=== PATIENT | female | born 1950 | race Caucasian/White ===

== ENCOUNTER 2017-12-23 09:08 | Day surgery (SDC) | payer MEDICARE, OTHER ==
[~2017-12-23] VITALS: Ht 165.1 cm; Wt 71.3 kg
[2017-12-23] MEDS ORDERED: MSM500 MG (09:59)
[2017-12-23] MEDS ORDERED: CHOL10002 (09:59)
[2017-12-23] MEDS ORDERED: Magnesium30 MG (10:00)
[2017-12-23] MEDS ORDERED: NAPR220 (10:00)
== END 2017-12-23 11:26 | disposition home or self-care (01) ==
LOC: ORSCSDS 09:08
PROVIDERS: Internal Medicine Gastroenterology
PROC: 0DJD8ZZ Inspection of Lower Intestinal Tract, Via Natural or Artificial Opening Endoscopic (ICD-10-PCS; principal; 2017-12-23 10:30)
DX: Z12.11 Encounter for screening for malignant neoplasm of colon (principal); K57.30 Diverticulosis of large intestine without perforation or abscess without bleeding; Z86.010 Personal history of colon polyps; Z83.71 Family history of colonic polyps
CPT/HCPCS: J7120

== ENCOUNTER 2021-01-26 09:03 | Emergency (ER) | payer OTHER ==
[~2021-01-26] VITALS: Ht 154.9 cm; Wt 64.4 kg
[~2021-01-26 09:03] MED LIST: CHOL10002; MSM500 MG; Magnesium30 MG; NAPR220
[2021-01-26 10:25] LABS: BASOPHILS ABSOLUTE AUTO 0.04 K/mm3 (0.00-0.23); BASOPHILS PERCENT AUTO 0 % (0-2); EOSINOPHILS PERCENT AUTO 0 % (0-6); Hematocrit 39.8 % (33.0-51.0); IMMATURE GRAN ABSOLUTE AUTO 0.06 K/mm3 (0.00-0.10); IMMATURE GRAN PERCENT AUTO 0 % (0-1); LYMPHOCYTES ABSOLUTE AUTO 0.78 K/mm3 (0.84-5.20); LYMPHOCYTES PERCENT AUTO 5 % (21-46); MONOCYTES PERCENT AUTO 7 % (4-13); Mean Corpuscular HGB 30.2 pg (26.0-34.0); Mean Corpuscular HGB Conc 32.7 g/dL (31.5-36.5); Mean Corpuscular Volume 93 fL (80-100); Mean Platelet Volume 9.7 fL (9.1-12.4); NEUTROPHILS ABSOLUTE AUTO 12.65 K/mm3 (1.96-9.15); NEUTROPHILS PERCENT AUTO 87 % (41-73); Platelet Count 199 K/mm3 (150-400); RDW Coefficient Variation 13.3 % (11.7-14.2); RDW Standard Deviation 45.2 fL (35.1-46.3); White Blood Cell Count 14.53 K/mm3 (4.00-11.30)
[2021-01-26 10:57] LABS: Albumin, Blood 3.6 g/dL (3.4-5.0); Albumin/Globulin Ratio 0.9 (0.8-1.8); Bilirubin, Total 1.1 mg/dL (0.1-1.0); Bun/Creatinine Ratio 13.5 (12.0-20.0); Calcium, Blood 8.8 mg/dL (8.5-10.1); Creatinine, Blood 1.04 mg/dL (0.40-1.00); Globulin, Blood 3.9 g/dL (2.2-4.0); Potassium, Blood 3.8 mmol/L (3.5-5.5); Total Protein, Blood 7.5 g/dL (6.4-8.2)
[2021-01-26] MEDS ORDERED: AMOCLA875 PO (12:23)
[2021-01-26] MEDS ORDERED: ONDA4ODT MM (12:23)
== END 2021-01-26 13:11 | disposition home or self-care (01) ==
LOC: ER 09:03
PROVIDERS: Emergency Medicine
DX: K57.32 Diverticulitis of large intestine without perforation or abscess without bleeding (principal); Z88.5 Allergy status to narcotic agent; Z88.8 Allergy status to other drugs, medicaments and biological substances; Z79.899 Other long term (current) drug therapy
CPT/HCPCS: 36415; 74177; 80053; 83690; 84484; 85025; 93005; 93010; 96365-59; 99284-25; J0295; J7120; Q9967

== ENCOUNTER 2022-02-01 11:57 | Day surgery (SDC) | payer OTHER ==
[~2022-02-01] VITALS: Ht 162.6 cm; Wt 65.1 kg
[~2022-02-01 11:57] MED LIST changes: +AMOCLA875 PO; +ONDA4ODT MM
[2022-02-01] MEDS ORDERED: ZINC15 (13:11)
[2022-02-01] MEDS ORDERED: GARLIC200 MG (13:11)
[2022-02-01] MEDS ORDERED: KRILL OIL500 MG (13:11)
== END 2022-02-01 15:04 | disposition home or self-care (01) ==
LOC: ORSCSDS 11:57
PROVIDERS: Ophthalmology
PROC: 08RJ3JZ Replacement of Right Lens with Synthetic Substitute, Percutaneous Approach (ICD-10-PCS; principal; 2022-02-01 13:00)
DX: H25.13 Age-related nuclear cataract, bilateral (principal); H35.30 Unspecified macular degeneration; H50.9 Unspecified strabismus
CPT/HCPCS: J2001; J2250; J3010; J3301; J7040; V2632

== ENCOUNTER 2022-03-01 12:02 | Day surgery (SDC) | payer OTHER ==
[~2022-03-01] VITALS: Ht 162.6 cm; Wt 64.4 kg
[~2022-03-01 12:02] MED LIST changes: +GARLIC200 MG; +KRILL OIL500 MG; +ZINC15
--- NOTE | 2022-03-01 13:02 | NUR ---
03/01/22 1302 Mikey Dahl CALL LIGHT WITHIN REACH. TETRACAINE AT 1255 PLEDGETT AT 1258 IN THE RIGHT EYE
== END 2022-03-01 14:40 | disposition home or self-care (01) ==
LOC: ORSCSDS 12:02
PROVIDERS: Ophthalmology
PROC: 08RJ3JZ Replacement of Right Lens with Synthetic Substitute, Percutaneous Approach (ICD-10-PCS; 2022-03-01)
PROC: 08SJ3ZZ Reposition Right Lens, Percutaneous Approach (ICD-10-PCS; principal; 2022-03-01 14:00)
DX: T85.22XA Displacement of intraocular lens, initial encounter (principal); H35.30 Unspecified macular degeneration; Z79.899 Other long term (current) drug therapy
CPT/HCPCS: J2001; J2250; J3010; J3301; J7040

== ENCOUNTER 2023-03-21 10:48 | Emergency (ER) | payer OTHER ==
[~2023-03-21] VITALS: Ht 172.7 cm; Wt 68.0 kg
[2023-03-21 10:54] VITALS: BP 129/74
== END 2023-03-21 12:05 | disposition home or self-care (01) ==
LOC: ER 10:48
DX: T63.441A Toxic effect of venom of bees, accidental (unintentional), initial encounter (principal); R55 Syncope and collapse; Z88.5 Allergy status to narcotic agent; Z88.1 Allergy status to other antibiotic agents; Z91.018 Allergy to other foods; Z88.8 Allergy status to other drugs, medicaments and biological substances; X58.XXXA Exposure to other specified factors, initial encounter
CPT/HCPCS: 99282

== ENCOUNTER 2024-03-10 07:58 | Day surgery (SDC) | payer OTHER ==
[~2024-03-10] VITALS: Ht 165.1 cm; Wt 55.8 kg
[~2024-03-10 07:58] MED LIST changes: +Atropine Sulfate 0.1 MG/ML 10ML SYR ONE; +Glycopyrrolate 0.2 MG/ML 1MLVIAL ONE; +Lactated Ringer's 1,000 ML IV ONE; +Lidocaine 2% 5 ML SDV ONE; +Lidocaine HCl/Pf 1% 5 ML VIAL ONE; +Methylene Blue 1% 100 MG/10 ML VIAL ONE; +Ondansetron HCl 2 MG / ML 2ML Vial ONE; +ePHEDrine Sulfate 50 MG/ML 1ML Injection ONE; +propofoL 50 ML IV ONE
[2024-03-10] MEDS ORDERED: Lactated Ringer's 1,000 ML IV ONE (08:20)
[2024-03-10 09:50] VITALS: BP 126/69
== END 2024-03-10 09:54 | disposition home or self-care (01) ==
LOC: ORSCSDS 07:58
PROVIDERS: Surgery
PROC: 0DJD8ZZ Inspection of Lower Intestinal Tract, Via Natural or Artificial Opening Endoscopic (ICD-10-PCS; principal; 2024-03-10 09:15)
DX: Z12.11 Encounter for screening for malignant neoplasm of colon (principal); Z86.010 Personal history of colon polyps; K57.30 Diverticulosis of large intestine without perforation or abscess without bleeding; E78.5 Hyperlipidemia, unspecified; E03.9 Hypothyroidism, unspecified
CPT/HCPCS: J0461; J2001; J2405; J2704; J7120; Q9968